=== PATIENT | female | born 1995 | race Hispanic/Latino ===

== ENCOUNTER 2018-12-12 01:38 | Emergency (ER) | payer MEDICAID ==
[2018-12-12 01:48] VITALS: BP 132/83
[2018-12-12 02:27] LABS: Basophils % (Auto) 0.3 % (0.0-1.8); Eosinophils % (Auto) 0.4 % (0.0-4.3); Hematocrit 36.7 % (30.3-42.9); Hemoglobin 12.4 gm/dl (10.1-14.3); Lymphocytes # (Auto) 0.9 K/mm3 (1.2-5.4); Lymphocytes % (Auto) 11.1 % (13.4-35.0); Mean Corpuscular HGB Conc 34 % (30-34); Mean Corpuscular Volume 88 fl (79-97); Monocytes # (Auto) 0.6 K/mm3 (0.0-0.8); Monocytes % (Auto) 6.7 % (0.0-7.3); Platelet Count 154 K/mm3 (140-440); Red Blood Count 4.19 M/mm3 (3.65-5.03); Red Cell Distribution Width 17.9 % (13.2-15.2)
[2018-12-12 03:35] LABS: Bacteria,Urine 1+ /HPF (Negative); Mucus,Urine FEW /HPF
--- NOTE | 2018-12-12 03:43 | Ultrasound Report ---
Transabdominal OB pelvic ultrasound INDICATION / CLINICAL INFORMATION: Abdominal pain and bleeding. COMPARISON: None available. FINDINGS: There is a single intrauterine with an estimated gestational age of 9 weeks by crown-rump l ength. There is a pole with cardiac activity and a heart rate of 170 bpm. A yolk sac is p resent. There is a moderate sized area of subchorionic hemorrhage along the right lateral margin of t he sac, measuring 4.2 cm in greatest dimension. The right ovary measures 1.6 x 1.0 x 1.3 cm and the left ovary 2.1 x 1.3 x 1.8 cm. There is no eviden ce of adnexal mass or free fluid. IMPRESSION: Single viable 9 week intrauterine . Moderate subchorionic hemorrhage. Signer Name: Luis E Barber MD Signed: 12/12/2018 3:39 AM Workstation Name: [id number]
[2018-12-12 03:53] LABS: Bilirubin,Urine NEG (Negative); Blood,Urine LG (Negative); Color,Urine Yellow (Yellow); Urobilinogen,Urine < 2.0 mg/dL (<2.0)
[2018-12-12 03:54] LABS: RBC,Urine > 182.0 /HPF (0.0-6.0)
--- NOTE | 2018-12-12 04:19 | Emergency Department Report ---
ED HPI - General Chief complaint: Vaginal Bleeding Stated complaint: ,BLEEDING AND CRAMPING Time Seen by Provider: 12/12/18 02:52 Source: patient, family Mode of arrival: Ambulatory Limitations: No Limitations - History of Present Illness Initial comments: Patient is a 23-year-old female presents to the emergency room with complaints o f vaginal bleeding that began 3 hours prior to arrival. States she has lower abdominal cramping. Patient states she is currently and her last menstrual cycle was the middle of September. She states that she took a at home test last week and it was positive. she has not seen an OPERATING ROOM AIDE. She denies any nausea, vomiting, diarrhea, fever, vaginal discharge, vaginal complaints. Denies any past medical history. She has an allergy to sulfa. denies any complications with her prior . /P:1/A:0 - Related Data Allergies Allergy/AdvReac Type Severity Reaction Status Date / Time Sulfa (Sulfonamide Allergy Unknown Verified 12/12/18 01:48 Antibiotics) ED Review of Systems ROS: Stated complaint: ,BLEEDING AND CRAMPING Other details as noted in HPI Comment: All other systems reviewed and negative ED Past Medical Hx - Past Medical History Previous Medical History?: No - Surgical History Past Surgical History?: No - Social History Smoking Status: Never Smoker Substance Use Type: None ED Physical Exam - General Limitations: No Limitations General appearance: alert, in no apparent distress - Head Head exam: Present: atraumatic, normocephalic - Eye Eye exam: Present: normal appearance - ENT ENT exam: Present: mucous membranes moist - Respiratory Respiratory exam: Present: normal lung sounds bilaterally. Absent: respiratory distress, wheezes, rales, rhonchi, stridor, accessory muscle use, decreased breath sounds, prolonged expiratory - Cardiovascular Cardiovascular Exam: Present: regular rate, normal rhythm, normal heart sounds. Absent: systolic murmur, diastolic murmur, rubs, gallop - GI/Abdominal GI/Abdominal exam: Present: soft, normal bowel sounds. Absent: distended, tenderness, guarding, rebound, rigid - Neurological Exam Neurological exam: Present: alert, oriented X3 - Psychiatric Psychiatric exam: Present: normal affect, normal mood - Skin Skin exam: Present: warm, dry, intact ED Course Vital Signs 12/12/18 01:41 Temperature 98.5 F Pulse Rate 101 H Respiratory 16 Rate Blood Pressure 132/83 O2 Sat by Pulse 100 Oximetry ED Medical Decision Making - Lab Data Result diagrams: 12/12/18 02:03 Lab Results 12/12/18 12/12/18 12/12/18 Range/Units 02:03 02:03 02:03 WBC 8.2 (4.5-11.0) K/mm3 RBC 4.19 (3.65-5.03) M/mm3 Hgb 12.4 (10.1-14.3) gm/dl Hct 36.7 (30.3-42.9) % MCV 88 (79-97) fl MCH 30 (28-32) pg MCHC 34 (30-34) % RDW 17.9 H (13.2-15.2) % Plt Count 154 (140-440) K/mm3 Lymph % (Auto) 11.1 L (13.4-35.0) % Tate % (Auto) 6.7 (0.0-7.3) % Eos % (Auto) 0.4 (0.0-4.3) % Baso % (Auto) 0.3 (0.0-1.8) % Lymph # 0.9 L (1.2-5.4) K/mm3 Tate # 0.6 (0.0-0.8) K/mm3 Eos # 0.0 (0.0-0.4) K/mm3 Baso # 0.0 (0.0-0.1) K/mm3 Seg Neutrophils % 81.5 H (40.0-70.0) % Seg Neutrophils # 6.7 (1.8-7.7) K/mm3 HCG, Qual Positive (Negative) HCG, Quant [id number] H (0-4) mIU/mL Urine Color (Yellow) Urine Turbidity (Clear) Urine pH (5.0-7.0) Ur Specific [place] (1.003-1.030) Urine Protein (Negative) mg/dL Urine Glucose (UA) (Negative) mg/dL Urine Ketones (Negative) mg/dL Urine Blood (Negative) Urine Nitrite (Negative) Urine Bilirubin (Negative) Urine Ictotest Urine Urobilinogen (<2.0) mg/dL Ur Leukocyte Esterase (Negative) Urine WBC (Auto) (0.0-6.0) /HPF Urine RBC (Auto) (0.0-6.0) /HPF U Epithel Cells (Auto) (0-13.0) /HPF Urine Bacteria (Auto) (Negative) /HPF Urine Mucus /HPF Blood Type 12/12/18 12/12/18 Range/Units 02:03 Unknown WBC (4.5-11.0) K/mm3 RBC (3.65-5.03) M/mm3 Hgb (10.1-14.3) gm/dl Hct (30.3-42.9) % MCV (79-97) fl MCH (28-32) pg MCHC (30-34) % RDW (13.2-15.2) % Plt Count (140-440) K/mm3 Lymph % (Auto) (13.4-35.0) % Tate % (Auto) (0.0-7.3) % Eos % (Auto) (0.0-4.3) % Baso % (Auto) (0.0-1.8) % Lymph # (1.2-5.4) K/mm3 Tate # (0.0-0.8) K/mm3 Eos # (0.0-0.4) K/mm3 Baso # (0.0-0.1) K/mm3 Seg Neutrophils % (40.0-70.0) % Seg Neutrophils # (1.8-7.7) K/mm3 HCG, Qual (Negative) HCG, Quant (0-4) mIU/mL Urine Color Yellow (Yellow) Urine Turbidity Slightly-cloudy (Clear) Urine pH 5.0 (5.0-7.0) Ur Specific [place] 1.028 (1.003-1.030) Urine Protein 30 mg/dl (Negative) mg/dL Urine Glucose (UA) Neg (Negative) mg/dL Urine Ketones 20 (Negative) mg/dL Urine Blood Lg (Negative) Urine Nitrite Neg (Negative) Urine Bilirubin Neg (Negative) Urine Ictotest Not Reportable Urine Urobilinogen < 2.0 (<2.0) mg/dL Ur Leukocyte Esterase Neg (Negative) Urine WBC (Auto) 10.0 H (0.0-6.0) /HPF Urine RBC (Auto) > 182.0 (0.0-6.0) /HPF U Epithel Cells (Auto) 4.0 (0-13.0) /HPF Urine Bacteria (Auto) 1+ (Negative) /HPF Urine Mucus Few /HPF Blood Type O POSITIVE - Radiology Data Radiology results: report reviewed Transabdominal OB pelvic ultrasound INDICATION / CLINICAL INFORMATION: Abdominal pain and bleeding. COMPARISON: None available. FINDINGS: There is a single intrauterine with an estimated gestational age of 9 weeks by crown-rump length. There is a pole with cardiac activity and a heart rate of 170 bpm. A yolk sac is present. There is a moderate sized area of subchorionic hemorrhage along the right lateral margin of the sac, measuring 4.2 cm in greatest dimension. The right ovary measures 1.6 x 1.0 x 1.3 cm and the left ovary 2.1 x 1.3 x 1.8 cm. There is no evidence of adnexal mass or free fluid. IMPRESSION: Single viable 9 week intrauterine . Moderate subchorionic hemorrhage. Signer Name: Luis E Barber MD Signed: 12/12/2018 3:39 AM Workstation Name: [id number] Transcribed By: RT Dictated By: Luis E Barber MD Electronically Authenticated By: Luis E Barber MD Signed Date/Time: 12/12/18 0339 - Medical Decision Making Patient is a 23-year-old female presents to the emergency room with complaints of vaginal bleeding that began 3 hours prior to arrival. States she has lower abdominal cramping. Patient states she is currently and her last menstrual cycle was the middle of September. She states that she took a at home test last week and it was positive. she has not seen an OPERATING ROOM AIDE. She denies any nausea, vomiting, diarrhea, fever, vaginal discharge, vaginal complaints. Denies any past medical history. She has an allergy to sulfa. denies any complications with her prior . /P:1/A:0. VSS. no abd tenderness or CVAT on exam. labs WNL. hcg quant is [id number]. UA shows many RBCs, pt shows WBCs in urine but no leukocyte esterase or nitrites, most likely due to higher amount of RBCs. pt is Rh positive. OB US shows Single viable 9 week intrauterine . Moderate subchorionic hemorrhage. discussed with pt threatened miscarriage. advised to please practice pelvic rest. Please drink plenty of water. Take a daily vitamin [id number]. you will need to have a repeat hCG Quant in the next 2-3 days. may have that completed at primary care doctor, OPERATING ROOM AIDE, or return to the emergency department. You're hCG Quant today was [id number]. follow up with an OPERATING ROOM AIDE in the next 2-3 days. Return to the emergency room for any new or worsening symptoms. - Differential Diagnosis IUP, UTI, threatened/spontaneous , subchorionic hemorrhage Critical care attestation.: If time is entered above; I have spent that time in minutes in the direct care of this critically ill patient, excluding procedure time. ED Disposition Clinical Impression: Vaginal bleeding, Abdominal cramping, Threatened miscarriage Subchorionic hematoma in first trimester Qualifiers: Fetus number: single or unspecified fetus Qualified Code(s): O41.8X10 - Other specified disorders of amniotic fluid and membranes, first trimester, not applicable or unspecified Disposition: DC-01 TO HOME OR SELFCARE Is pt being admited?: No Does the pt Need Aspirin: No Condition: Stable Instructions: Threatened Miscarriage (ED) Additional Instructions: please practice pelvic rest. Please drink plenty of water. Take a daily prena oscar vitamin [id number]. you will need to have a repeat hCG Quant in the next 2-3 days. may have that completed at primary care doctor, OPERATING ROOM AIDE, or return to the emergency department. You're hCG Quant today was [id number]. follow up with an OPERATING ROOM AIDE in the next 2-3 days. Return to the emergency room for any new or worsening symptoms. Referrals: CARLI VAZQUEZBERWICK MD OLY [Primary Care Provider] - 2-3 Days [facility] [Provider Group] - 2-3 Days [facility] [Provider Group] - 2-3 Days [facility] [Provider Group] - 2-3 Days Time of Disposition: 04:20 Print Language: NAMIBIAN
== END 2018-12-12 05:10 | disposition home or self-care (01) ==
LOC: ED 01:38
DX: O20.0 Threatened abortion (principal); O41.8X10 Other specified disorders of amniotic fluid and membranes, first trimester, not applicable or unspecified; Z88.2 Allergy status to sulfonamides; Z3A.09 9 weeks gestation of pregnancy
CPT/HCPCS: 36415; 76801; 81001; 84702; 84703; 85025; 86900; 86901; 87086